=== PATIENT | male | born 1970 | race Caucasian/White ===

== ENCOUNTER 2020-10-07 08:21 | Emergency (ER) | payer OTHER ==
[~2020-10-07] VITALS: Ht 182.9 cm; Wt 95.5 kg
[2020-10-07 08:38] VITALS: BP 134/83; Ht 182.9 cm; Wt 95.5 kg
[2020-10-07] MEDS ORDERED: CIPRODEX OTIC7.5 ML LEFT EAR (09:06)
== END 2020-10-07 09:08 | disposition home or self-care (01) ==
LOC: D.ER 08:21
DX: H66.92 Otitis media, unspecified, left ear (principal); H72.92 Unspecified perforation of tympanic membrane, left ear; Z72.0 Tobacco use